=== PATIENT | male | born 1995 | race Two or more races ===

== ENCOUNTER 2025-05-19 15:24 | Emergency (ER) | payer OTHER ==
[2025-05-19 15:28] VITALS: BP 131/89; PULSE 65; RESP 18; TEMP 98.9; BMI 27.5
[2025-05-19] MEDS ORDERED: KETOROLAC TROMETHAMINE 30 MG/1 ML VIAL ONE (16:52)
[2025-05-19] MEDS: KETOROLAC TROMETHAMINE 30 MG/1 ML VIAL IM ONE (17:11)
[2025-05-19 17:59] LABS: URINE APPEARANCE CLEAR; URINE BILIRUBIN NEGATIVE (NEGATIVE); URINE COLOR YELLOW; URINE GLUCOSE (UA) NEGATIVE (NEGATIVE); URINE KETONE NEGATIVE (NEGATIVE); URINE LEUK ESTERASE NEGATIVE (NEGATIVE); URINE NITRITE NEGATIVE (NEGATIVE); URINE PROTEIN NEGATIVE (NEGATIVE); URINE UROBILINOGEN 0.2 mg/dL (0.2-1.0)
== END 2025-05-19 18:23 | disposition home or self-care (01) ==
LOC: JERFT 15:24
PROC: 3E0233Z Introduction of Anti-inflammatory into Muscle, Percutaneous Approach (ICD-10-PCS; principal; 2025-05-19)
DX: M62.830 Muscle spasm of back (principal); M54.50 Low back pain, unspecified
CPT/HCPCS: 36415; 81003; 87077; 87086; 87491; 87591; 99284-25